=== PATIENT | female | born 1935 | race Caucasian/White ===

== ENCOUNTER 2016-09-14 05:43 | Emergency (ER) | payer OTHER, MEDICARE ==
[~2016-09-14] VITALS: Ht 149.9 cm; Wt 57.7 kg
[~2016-09-14 05:43] MED LIST: ADULT LOW DOSE81 M1 PO; ADVAIR 250/501 DISK IH; ALIGN4 MG PO; ALPHAGAN P100 DROP/5 LEFT EYE; ALPRAZOLAM0.5 MG; ASCORBIC ACID500 M3 PO; ASPIR 8181 M1 PO; BLOOD PRESSURE PO; BRIMONIDINE TAR10 ML LEFT EYE; BUPROPION XL150 MG PO; CALCITONIN-SAL3.8 ML NS; CALTRATE 600 +1 EAC1 PO; CALTRATE 600 +1 EACH PO; CENTRUM SILVER1 EAC3 PO; CENTRUM TABLET1 EACH PO; CYANOCOBALAM1000 MCG PO; DAILY VALUE1 EACH PO; DELZICOL400 MG PO; DOCUSATE SODIU100 MG PO; FENOFIBRATE160 M1 PO; FIBER CHOICE1 TABLET PO; FLORASTOR250 MG PO; FLUTICASONE PRO16 GM; GLUCOSAMINE &1 EAC1 PO; HYDROCHLOROTHIA25 MG PO; HYDROCODON-ACE1 EAC1; HYDROCODON-ACE1 EAC8 PO; HYDRODIURIL,ORE25 MG PO; K-DUR20 MEQ PO; LATANOPROST2.5 ML LEFT EYE; LEVOTHROID100 MCG PO; LEVOTHYROXINE112 MCG PO; LO-DOSE ASPIRIN81 M1 PO; LOSARTAN POTAS100 MG PO; LOSARTAN POTASS50 MG PO; LOTENSIN40 MG PO; LOVASTATIN10 MG PO; LUMIGAN 0.50 DROP/2. LEFT EYE; MELOXICAM15 MG PO; MIACALCIN4 ML NS; NIFEDIPINE ER90 MG PO; NORCO 7.5/321 TABLET PO; ODOR FREE GARL100 MG PO; OXCARBAZEPINE150 MG PO; PAIN RELIEF650 MG PO; POLYETHYLENE GL17 GM PO; PROBIOTIC1 EAC1 PO; PROBIOTIC1 EAC2 PO; SERTRALINE HCL100 MG PO; SYNTHROID112 MCG PO; TRAMADOL HCL50 MG PO; VANCOMYCIN125 MG/2.5 PO; VANCOMYCIN250 MG/5 M PO; VITAMIN B12 100MCG PO; VITAMIN C500 MG PO; VITAMIN E100 UNIT PO; VITAMIN E200 UNI2 PO; WELLBUTRIN XL150 MG PO; XALATAN2.5 ML LEFT EYE; ZOFRAN8 MG PO
[2016-09-14 06:42] LABS: EOSINOPHIL (%) 1.3 % (0-5); EOSINOPHIL COUNT 0.1 K/uL (0-0.3); IMMATURE GRANULOCYTE (%) 0.8 % (0.0-0.7); IMMATURE GRANULOCYTE COUNT 0.6 K/uL; LYMPHOCYTE COUNT 1.3 K/uL (1.0-2.8); MCH 28.5 PG (29.0-34.0); MCHC 33.7 G/DL (30.0-36.0); MCV 84.6 FL (83-99); MEAN PLAT.VOLUME 9.6 uM^3 (9.5-12.4); MONOCYTE (%) 7.6 % (3-12); MONOCYTE COUNT 0.6 K/uL (0-0.8); NEUTROPHIL (%) 73.9 % (45-76); NEUTROPHIL COUNT 5.8 K/uL (1.8-6.4); PLATELET COUNT 239 K/uL (156-360); RBC DIS.WIDTH-SD 42.9 % (39-53); RED BLOOD COUNT 5.44 M/uL (3.80-5.20); WHITE BLOOD COUNT 7.8 K/uL (4.1-10.2)
[2016-09-14 07:20] LABS: ALKALINE PHOSPHATASE 67 IU/L (3-129); ANION GAP 11 MEQ/L (2-14); CHLORIDE 103 MEQ/L (99-109); GFR ESTIMATE (CALCULATED) > 59 mL/min/; GLUCOSE 133 mg/dL (70-99); POTASSIUM 3.5 MEQ/L (3.7-5.4); SAMPLE HEMOLYSIS CHECK 0; SAMPLE ICTERIC CHECK 0; SAMPLE LIPEMIA CHECK 0; SODIUM 142 MEQ/L (136-147); TOTAL BILIRUBIN 0.4 MG/DL (0.0-1.0); UREA NITROGEN (BUN) 22 mg/dL (9-23)
[2016-09-14 07:22] LABS: INFLUENZA A VIRAL ANTIGEN NEGATIVE; INFLUENZA B VIRAL ANTIGEN NEGATIVE
[2016-09-14] MEDS ORDERED: IMODIUM MS REL1 EACH PO (08:59)
[2016-09-14] MEDS ORDERED: ZOFRAN ODT4 MG PO (08:59)
[2016-09-14 09:15] VITALS: BP 162/87
== END 2016-09-14 09:24 | disposition home or self-care (01) ==
LOC: EME 05:43
PROVIDERS: Emergency Medicine
DX: R10.9 Unspecified abdominal pain (principal); R11.2 Nausea with vomiting, unspecified; R19.7 Diarrhea, unspecified; J06.9 Acute upper respiratory infection, unspecified; E78.5 Hyperlipidemia, unspecified; I10 Essential (primary) hypertension; Z79.82 Long term (current) use of aspirin; Z87.891 Personal history of nicotine dependence
CPT/HCPCS: 71010; 80053; 85025; 87502; 99281; 99285; J2405; J7030